=== PATIENT | female | born 1975 | race Caucasian/White ===

== ENCOUNTER → 2019-02-02 | Outpatient (CLI) | payer OTHER | END | disposition home or self-care (01) | LOC: CFH 15:28 | PROVIDERS: ATTEND Nurse Practitioner Family | DX: N28.89 Other specified disorders of kidney and ureter (principal) | CPT/HCPCS: 74018 ==

== ENCOUNTER 2019-05-23 10:39 | Outpatient (CLI) | payer OTHER | END 2019-05-23 23:59 | disposition home or self-care (01) | LOC: CFH 10:39 | PROVIDERS: ATTEND Obstetrics & Gynecology Female Pelvic Medicine and Reconstructive Surgery | DX: D25.9 Leiomyoma of uterus, unspecified (principal) | CPT/HCPCS: 76830 ==